=== PATIENT | male | born 1970 | race Caucasian/White ===

== ENCOUNTER 2017-11-22 23:31 | Emergency (ER) | payer BC ==
--- NOTE | 2017-11-22 23:52 | Emergency Department Record ---
History of Present Illness - General Chief complaint: Extremity Problem Stated complaint: SWOLLEN WRIST- GOT HIT WITH A SOFTBALL Time Seen by Provider: 11/22/17 23:48 Source: Patient Mode of Arrival: Ambulatory Limitations: No limitations - History of Present Illness Initial comments: 47 yo male presents to ED for evaluation of pain and swelling to the left wrist after being struck in the area with a soft-ball 2 days ago. Patient reports pain, bruising, and swelling to the area. Patient reports pain with palpation, denies numbness, tingling, or weakness. Patient denies health problems at his baseline. MD Complaint: Joint pain, Joint swelling Onset/Timin -: Days(s) Location: Left, Forearm, Other History of Same: No Radiation: None Severity scale (1-10): 6 Quality: Aching Consistency: Constant Improves with: Nothing Worsens with: Exertion, Palpation Associated Symptoms: Denies other symptoms - Related Data Home Medications Medication Instructions Recorded Confirmed Last Taken No Home Med [NO HOME MEDS] 11/22/17 11/22/17 Unknown Allergies Allergy/AdvReac Type Severity Reaction Status Date / Time Penicillins Allergy ANAPHYLAXIS Verified 11/22/17 23:37 Travel Screening - Travel/Exposure Within Last 30 Days Have you traveled within the last 30 days?: No - Travel/Exposure Within Last Year Have you traveled outside the [place] in the last year?: No - Additonal Travel Details Have you been exposed to anyone with a communicable illness?: No - Travel Symptoms Symptom Screening: None Review of Systems Constitutional: Denies: Chills, Fever, Malaise, Night sweats Eyes: Denies: Eye discharge, Eye pain ENT: Denies: Congestion, Ear pain, Epistaxis Respiratory: Denies: Cough, Dyspnea Cardiovascular: Denies: Chest pain, Dyspnea on exertion Endocrine: Denies: Fatigue, Heat or cold intolerance Gastrointestinal: Denies: Abdominal pain, Nausea, Vomiting Genitourinary: Denies: Incontinence, Retention Musculoskeletal: Reports: Arthralgia, Joint swelling. Denies: Back pain, Gout Skin: Reports: Bruising. Denies: Change in color Neurological: Denies: Abnormal gait, Confusion, Headache, Seizure Psychiatric: Denies: Anxiety Hematological/Lymphatic: Denies: Anemia, Blood Clots Past Medical History - SOCIAL HISTORY Smoking Status: Current every day smoker Alcohol Use: Occasional, Heavy Drug Use: None - RESPIRATORY Hx Respiratory Disorders: No - CARDIOVASCULAR Hx Cardio Disorders: No - NEURO Hx Neuro Disorders: No - GI Hx GI Disorders: No - Hx Genitourinary Disorders: No - ENDOCRINE Hx Endocrine Disorders: No - MUSCULOSKELETAL Hx Musculoskeletal Disorders: No - PSYCH Hx Psych Problems: No - HEMATOLOGY/ONCOLOGY Hx Hematology/Oncology Disorders: No Family Medical History Any Significant Family History?: No Physical Exam - General General Appearance: Alert, Oriented x3, Cooperative, Mild distress Limitations: No limitations - Head Head exam: Atraumatic, Normocephalic, Normal inspection Head exam detail: negative: Abrasion, Contusion, Rhodes's sign, General tenderness, Hematoma, Laceration - Eye Eye exam: Normal appearance. negative: Conjunctival injection, Periorbital swelling, Periorbital tenderness, Scleral icterus - ENT Ear exam: negative: Auricular hematoma, Auricular trauma Nasal Exam: negative: Active bleeding, Discharge, Dried blood, Foreign body Mouth exam: negative: Drooling, Laceration, Muffled voice, Tongue elevation - Neck Neck exam: Normal inspection. negative: Meningismus, Tenderness - Respiratory Respiratory exam: Normal lung sounds bilaterally. negative: Rales, Respiratory distress, Rhonchi, Stridor - Cardiovascular Cardiovascular Exam: Regular rate, Normal rhythm, Normal heart sounds Peripheral Pulses: 3+: Radial (L) - GI/Abdominal GI/Abdominal exam: Soft. negative: Rebound, Rigid, Tenderness - Rectal Rectal exam: Deferred - exam: Deferred - Extremities Extremities exam: Tenderness, Other (TTP over the distal ulna on examination as well as the hypothenar region of the hand. Compartments of the forearm and wrist are soft on examination, strong distal radial pulse is present.). negative: Calf tenderness, Pedal edema - Back Back exam: Denies: CVA tenderness (R), CVA tenderness (L) - Neurological Neurological exam: Alert, Normal gait, Oriented X3 - Psychiatric Psychiatric exam: Normal affect, Normal mood - Skin Skin exam: Normal color. negative: Abrasion Type of lesion: negative: abrasion Course Vital Signs 11/22/17 11/22/17 23:36 23:38 Temperature 98.3 F 98.3 F Pulse Rate 63 Pulse Rate [ 68 Pulse Ox Probe] Respiratory 16 18 Rate Blood Pressure 137/84 Blood Pressure 137/84 [Right Arm] Pulse Ox 99 99 - Reevaluation(s) Reevaluation #1: 11/23/17 00:12 Left hand: Comminuted minimally displaced fracture of the Pisiform Patient was updated on all results, will place in thumb spica splint with instructions for follow-up with Dr. Batres for further evaluation. Patient declined analgesia other than 2 [place] if needed. Disposition Disposition: Discharge Clinical Impression: Fx pisiform-closed Qualifiers: Encounter type: initial encounter Fracture alignment: nondisplaced Laterality: left Qualified Code(s): S62.165A - Nondisplaced fracture of pisiform, left wrist , initial encounter for closed fracture Disposition: Home, Self-Care Condition: (2) Stable Instructions: Hand Fracture (ED) Additional Instructions: Return to ED if your symptoms worsen or if you have any concerns. [place] and Ibuprofen as directed. Follow-up with Dr. Batres next week in 3 days as directed, call for appointment. Referrals: DOMI BATRES M.D. [MEDICAL DOCTOR] - Forms: Patient Portal Access Time of Disposition: 00:14 Quality - Quality Measures Quality Measures: N/A - Blood Pressure Screening Does Patient Have Any of the Following: No Blood Pressure Classification: Pre-Hypertensive BP Reading Systolic Measurement: 137 Diastolic Measurement: 84 Screening for High Blood Pressure: < Pre-Hypertensive BP, F/U Documented > [ [id number]] Pre-Hypertensive Follow-up Interventions: Referral to alternative/primary care provider.
[2017-11-23] MEDS ORDERED: HYDROCODONE/APAP 5/325MG TABLET PO ONE (00:20)
--- NOTE | 2017-11-26 09:14 | RADIOLOGY REPORT ---
EXAM: LEFT HAND HISTORY: LEFT HAND PAIN AFTER BEING HIT BY A SOFTBALL THREE DAYS AGO. LIMITED RANGE OF MOTION. TECHNIQUE: Four views of the left hand were obtained. Comparison: None. Encounter: Initial. FINDINGS: There is a comminuted nondisplaced fracture of the pisiform. The remaining osseous and articular structures are normal. No other fractures are identified. There is no dislocation. IMPRESSION: COMMINUTED NONDISPLACED FRACTURE OF THE PISIFORM. JOB NUMBER: [id number] [facility]
== END 2017-11-23 00:37 | disposition home or self-care (01) ==
LOC: ER 23:31
DX: S62.162A Displaced fracture of pisiform, left wrist, initial encounter for closed fracture (principal); W21.07XA Struck by softball, initial encounter; Y93.64 Activity, baseball; F17.210 Nicotine dependence, cigarettes, uncomplicated
CPT/HCPCS: 99283